=== PATIENT | male | born 1960 | race Hispanic/Latino ===

== ENCOUNTER 2019-04-18 04:34 | Inpatient (IN) | payer OTHER ==
[~2019-04-18] VITALS: Ht 172.7 cm; Wt 87.2 kg
[2019-04-18] VITALS (30 sets, daily range): BP systolic 110–145; BP diastolic 63–90
[2019-04-18] MEDS ORDERED: 1/2 NORMAL SALINE 1,000 ML IV SCH (06:15)
[2019-04-18] MEDS ORDERED: NITROGLYCERIN 50 MG/D5% WATER 1 BOT IV PRN (06:15)
[2019-04-18] MEDS ORDERED: ONDANSETRON HCL 4 MG/2 ML VIAL IVP PRN (06:15)
[2019-04-18] MEDS ORDERED: 1/2 NORMAL SALINE 1,000 ML IV ONE (06:51)
[2019-04-18] MEDS ORDERED: OMEP20TA25 PO (07:31)
[2019-04-18] MEDS ORDERED: METF-445 PO (07:31)
[2019-04-18] MEDS ORDERED: ACET-3194 PO (07:31)
[2019-04-18] MEDS ORDERED: METO-409 PO (07:31)
[2019-04-18] MEDS: METOPROLOL TARTRATE 50 MG TAB PO SCH ×3 (08:42→17:44)
[2019-04-18] MEDS: ASPIRIN 81MG TAB.CHEW PO SCH (08:42)
[2019-04-18] MEDS: ATORVASTATIN CALCIUM 40 MG TABLET PO SCH ×2 (08:42→19:45)
[2019-04-18] MEDS: ENALAPRIL MALEATE 5 MG TAB PO SCH ×2 (08:42→19:44)
--- NOTE | 2019-04-18 08:49 | NUR ---
DR. GRAY IN TO SEE PT. PLAN OF CARE DISCUSSED.
[2019-04-18] MEDS ORDERED: ACETAMINOPHEN-CODEINE 300/30MG TAB PO PRN (09:00)
[2019-04-18] MEDS ORDERED: HYDRALAZINE HCL 20 MG/ML VIAL IV PRN (09:00)
[2019-04-18] MEDS ORDERED: ACETAMINOPHEN 325 MG TAB PO PRN (09:00)
[2019-04-18] MEDS ORDERED: ONDANSETRON HCL 4 MG/2 ML VIAL IV PRN (09:00)
[2019-04-18] MEDS ORDERED: MORPHINE SULFATE 2 MG/ML 1ML SYG IV PRN (09:00)
[2019-04-18 10:12] LABS: TROPONIN I 104.56 ng/mL (0.00-0.06)
[2019-04-18] MEDS: FAMOTIDINE/PF 20 MG/2 ML VIAL IV SCH ×2 (10:34→19:44)
--- NOTE | 2019-04-18 10:35 | NUR ---
ИРИНА SILVERIO AT BEDSIDE TO SEE PT.
[2019-04-18] MEDS: INSULIN HUMULIN R 100 UNIT/ML 3ML SQ SCH ×3 (11:49→21:06)
--- NOTE | 2019-04-18 15:02 | NUR ---
DC PLAN VISITED WITH PATIENT. PATIENT LIVES WITH SPOUSE. INDEPENDENT ABLE TO PERFORM ADL'S. PATIENT HAS NO SERVICES OR DME'S. FEELS SAFE TO RETURN HOME. Addendum: 04/18/19 at 1505 by GENE MACARIO RN CM Amended: Links added.
[2019-04-18 16:45] LABS: TROPONIN I 86.09 ng/mL (0.00-0.06)
--- NOTE | 2019-04-18 21:00 | NUR ---
C/O ache to right shoulder. States has had this arthritic-like pain x 30 years. Takes tylenol at home. Medicated with Tylenol. Verbalized relief.
[2019-04-18] MEDS ORDERED: PHARMACY COMMUNICATION MISC SCH (21:30)
[2019-04-19] VITALS (18 sets, daily range): BP systolic 97–150; BP diastolic 50–83
[2019-04-19] MEDS: METOPROLOL TARTRATE 50 MG TAB PO SCH ×3 (00:40→11:37)
[2019-04-19 04:00] LABS: BASOPHILS % (AUTO) 0.5 % (0.0-5.0); EOSINOPHILS % (AUTO) 0.3 % (0.0-8.0); HEMATOCRIT 42.2 % (42-54); HEMOGLOBIN A1C 9.4 % (4.0-6.0); LYMPHOCYTES % (AUTO) 21.8 % (21.0-51.0); MEAN CORPUSCULAR HEMOGLOBIN 29.5 pg (27.0-33.0); MEAN CORPUSCULAR HGB CONC 34.8 g/dL (32.0-36.0); MEAN CORPUSCULAR VOLUME 84.7 fL (79-99); MONOCYTES % (AUTO) 12.1 % (3.0-13.0); NEUTROPHILS % (AUTO) 65.3 % (40.0-77.0); PLATELET COUNT (AUTO) 196 K/uL (130-400); RED BLOOD CELL COUNT(AUTO) 4.98 MIL/uL (4.50-6.20); RED CELL DISTRIBUTION WIDTH 13.3 % (11.0-15.5); WHITE BLOOD COUNT (AUTO) 10.2 K/uL (4.8-10.8)
[2019-04-19 04:12] LABS: CREATININE 0.9 mg/dL (0.5-1.5); POTASSIUM 3.5 mmol/L (3.5-5.1)
[2019-04-19] MEDS: INSULIN HUMULIN R 100 UNIT/ML 3ML SQ SCH ×4 (06:30→21:00)
[2019-04-19] MEDS: PRASUGREL HCL 10 MG TABLET PO SCH (09:06)
[2019-04-19] MEDS: ASPIRIN 81MG TAB.CHEW PO SCH (09:07)
[2019-04-19] MEDS: ENALAPRIL MALEATE 5 MG TAB PO SCH ×2 (09:08→20:54)
--- NOTE | 2019-04-19 09:30 | NUR ---
PT IN NO DISTRESS. ENCOURAGED AND EDUCATED ON IMPORTANCE OF DIABETES MANAGEMENT. ALSO INFORMED OF EFFIENT/ASA/LOPRESSOR/LIPITOR/VASOTEC. NEEDS REENFORCEMENT HE IS NON COMPLIANT WITH DIABETES MANAGEMENT. HE STATES HE EATS 10EGGS,12TORTILLAS,DRINKS A LITER OF [place] JUST IN THE MORNING. THEN HE FEELS DROWSY. I INFORMED HIM THAT THESE WHERE SIGNS OF HYPERGLYCEMIA AND HE NEEDS TO CHANGE HIS DIET
[2019-04-19] MEDS: FAMOTIDINE 20MG TAB 20 MG TAB PO SCH (11:37)
--- NOTE | 2019-04-19 13:46 | NUR ---
Nutrition Intervention: Nutrition consult for diabetes education. Pt. S/P PTCA with stent placement to LAD(04/18/19). Pt. on 2gm na 75gm CCD diet with good p.o. intake, as per pt. Labs reviewed(BG 251, HgbA1c 9.4%). SR-17, groin incision. BMI: 31.6, obese. Pt. and family educated on Diabetic Heart Healthy diet and provided with education material. Pt. verbalized understanding. Recommendations: 1) Continue current diet. 2) Diabetic Heart Healthy diet education given to pt. and family. 3) Continue to monitor pt's nutritional status. 4) Consult RD as nutrition concerns arise. Addendum: 04/19/19 at [address] Amended: Links added.
--- NOTE | 2019-04-19 13:52 | NUR ---
PT WANTS TO KNOW WHEN CUSTOMER SUPPORT REPRESENTATIVE IS COMING TO SEE HIM AND HIS DISPOSITION . I HAVE PAGED DR PETAR IGLESIAS
--- NOTE | 2019-04-19 18:22 | NUR ---
TRANSFERRED TO ROOM 202
--- NOTE | 2019-04-19 18:30 | NUR ---
HAND OFF REPORT GIVEN TO ROJAS NDIAYE
[2019-04-19] MEDS: METOPROLOL TARTRATE 25 MG TAB PO SCH (20:54)
[2019-04-19] MEDS: ATORVASTATIN CALCIUM 40 MG TABLET PO SCH (20:54)
[2019-04-20] VITALS (7 sets, daily range): BP systolic 114–137; BP diastolic 66–80
[2019-04-20 03:56] LABS: BASOPHILS % (AUTO) 0.4 % (0.0-5.0); EOSINOPHILS % (AUTO) 0.7 % (0.0-8.0); HEMATOCRIT 39.3 % (42-54); LYMPHOCYTES % (AUTO) 31.9 % (21.0-51.0); MEAN CORPUSCULAR HEMOGLOBIN 29.1 pg (27.0-33.0); MEAN CORPUSCULAR HGB CONC 34.4 g/dL (32.0-36.0); MEAN CORPUSCULAR VOLUME 84.6 fL (79-99); MONOCYTES % (AUTO) 12.6 % (3.0-13.0); NEUTROPHILS % (AUTO) 54.4 % (40.0-77.0); PLATELET COUNT (AUTO) 192 K/uL (130-400); RED BLOOD CELL COUNT(AUTO) 4.65 MIL/uL (4.50-6.20); RED CELL DISTRIBUTION WIDTH 13.3 % (11.0-15.5); WHITE BLOOD COUNT (AUTO) 8.6 K/uL (4.8-10.8)
[2019-04-20 04:04] LABS: CREATININE 0.9 mg/dL (0.5-1.5); POTASSIUM 3.6 mmol/L (3.5-5.1)
--- NOTE | 2019-04-20 05:29 | NUR ---
Denies chest pain, back pain, or sob. Patient states he feels good. Groin site soft, no hematoma. Ambulating well.
[2019-04-20] MEDS: INSULIN HUMULIN R 100 UNIT/ML 3ML SQ SCH ×4 (07:06→23:39)
[2019-04-20] MEDS: METOPROLOL TARTRATE 25 MG TAB PO SCH ×2 (07:25→20:20)
[2019-04-20] MEDS: FAMOTIDINE 20MG TAB 20 MG TAB PO SCH (07:25)
[2019-04-20] MEDS: PRASUGREL HCL 10 MG TABLET PO SCH (07:25)
[2019-04-20] MEDS: ASPIRIN 81MG TAB.CHEW PO SCH (07:25)
[2019-04-20] MEDS: ENALAPRIL MALEATE 5 MG TAB PO SCH ×2 (07:25→20:21)
--- NOTE | 2019-04-20 08:00 | NUR ---
ASSESSMENT PT IS AAOX4 DENIES CP DENIES SOB DENIES NV NO COMPLAINTS AT THIS TIME. AM MEDS GIVEN, TOLERATED WELL. RIGHT GROIN OPEN TO AIR, SOFT. BRUISING NOTED TO SITE BUT NO HEMATOMA PRESENT. CALL LIGHT WITHIN REACH.
--- NOTE | 2019-04-20 17:30 | NUR ---
STATUS RESTING IN BED, NO COMPLAINTS. CALL LIGHT WITHIN REACH.
[2019-04-20] MEDS: ATORVASTATIN CALCIUM 40 MG TABLET PO SCH (20:21)
[2019-04-21 03:37] LABS: BASOPHILS % (AUTO) 0.8 % (0.0-5.0); EOSINOPHILS % (AUTO) 1.4 % (0.0-8.0); HEMATOCRIT 37.7 % (42-54); LYMPHOCYTES % (AUTO) 32.8 % (21.0-51.0); MEAN CORPUSCULAR HEMOGLOBIN 28.9 pg (27.0-33.0); MEAN CORPUSCULAR HGB CONC 33.9 g/dL (32.0-36.0); MEAN CORPUSCULAR VOLUME 85.4 fL (79-99); MONOCYTES % (AUTO) 13.1 % (3.0-13.0); NEUTROPHILS % (AUTO) 51.9 % (40.0-77.0); NUCLEATED RED BLOOD CELLS 0.1 % (0.0-0.19); PLATELET COUNT (AUTO) 182 K/uL (130-400); RED BLOOD CELL COUNT(AUTO) 4.42 MIL/uL (4.50-6.20); RED CELL DISTRIBUTION WIDTH 13.2 % (11.0-15.5); WHITE BLOOD COUNT (AUTO) 8.1 K/uL (4.8-10.8)
[2019-04-21 03:47] LABS: CREATININE 0.8 mg/dL (0.5-1.5); POTASSIUM 3.5 mmol/L (3.5-5.1)
[2019-04-21 04:02] VITALS: BP 119/75
--- NOTE | 2019-04-21 04:14 | NUR ---
PATIENT DENIES CHEST PAIN OR SOB. GROIN SOFT, NO HEMATOMA. AMBULATING IN ROOM.
[2019-04-21] MEDS ORDERED: ENAL5TAB PO (06:20)
[2019-04-21] MEDS ORDERED: ATOR40TA69 PO (06:20)
[2019-04-21] MEDS ORDERED: ASPI-1005 PO (06:20)
[2019-04-21] MEDS ORDERED: PRAS10TA6 PO (06:20)
[2019-04-21] MEDS: INSULIN HUMULIN R 100 UNIT/ML 3ML SQ SCH ×2 (06:45→11:30)
[2019-04-21 07:12] VITALS: BP 144/91
[2019-04-21] MEDS: PRASUGREL HCL 10 MG TABLET PO SCH (07:34)
[2019-04-21] MEDS: ASPIRIN 81MG TAB.CHEW PO SCH (07:34)
[2019-04-21] MEDS: FAMOTIDINE 20MG TAB 20 MG TAB PO SCH (07:34)
[2019-04-21] MEDS: ENALAPRIL MALEATE 5 MG TAB PO SCH (07:34)
[2019-04-21] MEDS: METOPROLOL TARTRATE 25 MG TAB PO SCH (07:34)
--- NOTE | 2019-04-21 08:00 | NUR ---
ASSESSMENT PT IS AAOX4 DENIES CP DENIES SOB DENIES NV NO COMPLAINTS. SITTING UP IN CHAIR, CALL LIGHT WITHIN REACH.
[2019-04-21 11:09] VITALS: BP 130/85
--- NOTE | 2019-04-21 11:11 | NUR ---
cm note met with patient and informed of md order for Effient, and provided pt with Good RX coupon and called [facility] pharmacy in [place] per pt request spoke to cipriano and states will honor the 35$/month supply of Effient. pt states he is able to afford $35 per month. and will continue to use the good rx coupon. and followup with md as well. updated pt with above information and importance of adhering to medication. pt states he is familiar with [facility] uninsured [facility] and will followup.
--- NOTE | 2019-04-21 12:35 | NUR ---
DISCHARGE PATIENT VERBALIZES DC INSTRUCTIONS UNDERSTANDING , AGREE TO GET MEDS SCRIPTS FILLED AND TAKE ORDERED. AGREES TO MAKE HIS OWN APPOINTMENT WITH DR Darell STAFFORD. ALL QUESTIONS ANSWERED, PIVS REMOVED, TELE PACK REMOVED. AWAITING RIDE.
== END 2019-04-21 12:09 | disposition home or self-care (01) | DRG 247 ==
LOC: EDHIP 04:35 → 2CH 04:36 → 2BH 05:06 → 2CH 16:34 → 2AH 04-19 18:26
PROVIDERS: ADMIT Internal Medicine; ATTEND Internal Medicine
PROC: 027034Z Dilation of Coronary Artery, One Artery with Drug-eluting Intraluminal Device, Percutaneous Approach (ICD-10-PCS; principal; 2019-04-18)
PROC: 4A023N7 Measurement of Cardiac Sampling and Pressure, Left Heart, Percutaneous Approach (ICD-10-PCS; 2019-04-18)
PROC: B2111ZZ Fluoroscopy of Multiple Coronary Arteries using Low Osmolar Contrast (ICD-10-PCS; 2019-04-18)
PROC: B2151ZZ Fluoroscopy of Left Heart using Low Osmolar Contrast (ICD-10-PCS; 2019-04-18)
DX: I21.09 ST elevation (STEMI) myocardial infarction involving other coronary artery of anterior wall (principal); I10 Essential (primary) hypertension; E11.9 Type 2 diabetes mellitus without complications; K21.9 Gastro-esophageal reflux disease without esophagitis; E78.5 Hyperlipidemia, unspecified; I25.10 Atherosclerotic heart disease of native coronary artery without angina pectoris; Z87.891 Personal history of nicotine dependence; Z95.5 Presence of coronary angioplasty implant and graft; Z83.3 Family history of diabetes mellitus
CPT/HCPCS: 36415; 71045; 80048; 80061; 82550; 82948; 83036; 83874; 83880; 84484; 85025; 93005; 93306; 93454; C1725; C1760; C1769; C1894; C9600; G0378; J1815; J3490